=== PATIENT | female | born 1990 | race Caucasian/White ===

== ENCOUNTER 2023-05-16 13:03 | Emergency (ER) | payer OTHER ==
[~2023-05-16] VITALS: Ht 162.6 cm; Wt 95.2 kg
--- OUTSIDE RECORDS SUMMARY | 2023-05-16 13:06 | XMS ---
PreManage Notification: [employer] Events No recent Security Events currently on file CRITERIA MET - [facility] CARE PROVIDERS There are no care providers on record at this time. Yolie has no Care Guidelines for this patient. Radha VISIT COUNT (12 MO.) 1 [facility] Macias TOTAL 1 NOTE: Visits indicate total known visits. ED/C VISIT TRACKING (12 MO.) 05/16/2023 13:04 [facility] [place] TYPE: Emergency COMPLAINT: - POSS OVERDOSE INPATIENT VISIT TRACKING (12 MO.) No inpatient visits to display in this time frame [id number]
[2023-05-16 13:32] LABS: BASOPHILS 0.3 % (0-2); EOSINOPHILS 1.2 % (0-6); HEMATOCRIT 39.5 % (35.0-50.0); HEMOGLOBIN 13.7 g/dL (12.0-18.0); LYMPHOCYTES 14.5 % (24-44); MCH 30.2 (27-36); MCHC 34.6 g/dl (30-36); MCV 87.4 fl (81-99); MONOCYTES 4.5 % (0-12); NEUTROPHILS 79.5 % (39-80); PLATELET COUNT 233 K/uL (140-440); RBC 4.52 M/ul (4.3-5.7)
[2023-05-16 13:50] LABS: ACETAMINOPHEN 0 ug/mL (10-30); ALBUMIN 3.3 g/dL (3.4-5.0); ALBUMIN/GLOBULIN RATIO 1.18 (1.1-2.4); ALCOHOL, MEDICAL <3 ng/dL (<3); ALKALINE PHOSPHATASE 84 U/L (46-116); ALT (SGPT) 14 U/L (14-59); ANION GAP 12.2 (7-21); AST (SGOT) 13 U/L (15-37); BILIRUBIN, TOTAL 0.5 ng/dL (0.2-1.0); BUN/CREATININE RATIO 6.31 (6.0-28.6); CARBON DIOXIDE 31 mmol/L (21-32); CHLORIDE 99 mmol/L (98-107); CREATININE, SERUM 0.95 mg/dL (0.55-1.02); GLOMERULAR FILTRATION RATE,EST 82 mL/min (>60); POTASSIUM 3.2 mmol/L (3.5-5.1); PROTEIN, TOTAL 6.1 g/dL (6.4-8.2); SALICYLATE 3.2 mg/dL (2.8-20.0); UREA NITROGEN 6 mg/dL (7-18)
[2023-05-16 13:55] LABS: CALCIUM 8.8 mg/dL (8.5-10.1)
[2023-05-16 14:17] LABS: PREGNANCY TEST, URINE NEGATIVE (NEG)
[2023-05-16 14:18] LABS: AMPHETAMINES, UR NEGATIVE (NEGATIVE); BARBITURATES, UR NEGATIVE (NEGATIVE); BENZODIAZEPINES, UR NEGATIVE (NEGATIVE); BUPRENORPHINE,UR NEGATIVE (NEGATIVE); COCAINE, UR NEGATIVE (NEGATIVE); MARIJUANA (THC), UR NEGATIVE (NEGATIVE); MDMA, UR NEGATIVE (NEGATIVE); METHADONE, UR NEGATIVE (NEGATIVE); METHAMPHETAMINE, UR NEGATIVE (NEGATIVE); OPIATES, UR NEGATIVE (NEGATIVE); OXYCODONE, UR NEGATIVE (NEGATIVE); PHENCYCLIDINE, UR NEGATIVE (NEGATIVE); TRICYCLIC ANTIDEPRESSANT, UR NEGATIVE (NEGATIVE)
[2023-05-16 16:44] VITALS: BP 116/71
--- NOTE | 2023-05-17 05:58 | EKG ---
[facility] [address] [place], [place] [address] Signed Normal sinus rhythm Normal ECG No previous ECGs available Confirmed by TAYLOR HANCOCK MD ([id number]) on 05/17/2023 5:58:03 AM Electronically Signed By: TAYLOR HANCOCK 05/17/23 0558 PATIENT NAME: KIRIT STEELA Oracio Electrocardiogram DATE OF : 89 PHYSICIAN: TAYLOR HANCOCK REPORT #: [id number] REPORT IS CONFIDENTIAL AND NOT TO BE RELEASED WITHOUT AUTHORIZATION
== END 2023-05-16 16:35 | disposition other institution, planned readmission (95) ==
LOC: ED 13:03
PROVIDERS: Emergency Medicine
DX: T40.411A Poisoning by fentanyl or fentanyl analogs, accidental (unintentional), initial encounter (principal); Z88.0 Allergy status to penicillin
CPT/HCPCS: 36415; 80053; 82553; 84703; 85025; 93005; 93010; G0480; J7030

== ENCOUNTER → 2023-06-01 | Emergency (ER) | payer OTHER ==
[~2023-06-01] VITALS: Ht 162.6 cm; Wt 95.2 kg
[~2023-06-01] MED LIST: ATIVAN1 MG PO; GEODON80 MG PO; HYDROXYZINE HCL25 MG PO; MINIPRESS2 MG PO; TRAZODONE HCL100 MG PO; ZYPREXA5 MG SL
--- OUTSIDE RECORDS SUMMARY | 2023-06-01 15:55 | XMS ---
PreManage Notification: [employer] Events No recent Security Events currently on file CRITERIA MET - [facility] - [facility] - 2 Visits in 30 Days CARE PROVIDERS There are no care providers on record at this time. Yolie has no Care Guidelines for this patient. Rad[facility] NOTE: Visits indicate total known visits. ED/C VISIT TRACKING (12 MO.) [facility] COMPLAINT: - MEDICAL CLEARANCE 05/16/2023 13:04 [facility] [place] TYPE: Emergency COMPLAINT: - POSS OVERDOSE DIAGNOSES: - Allergy status to penicillin - Poisoning by fentanyl or fentanyl analogs, accidental (unintentional), initial encounter INPATIENT VISIT TRACKING (12 MO.) No inpatient visits to display in this time frame [id number]
[2023-06-01 16:48] LABS: BASOPHILS 0.3 % (0-2); EOSINOPHILS 1.2 % (0-6); HEMOGLOBIN 13.9 g/dL (12.0-18.0); MCH 30.2 (27-36); MCV 88.8 fl (81-99); NEUTROPHILS 73.5 % (39-80); PLATELET COUNT 241 K/uL (140-440); RBC 4.61 M/ul (4.3-5.7); RDW 13.9 (10.5-15.0)
[2023-06-01 17:12] LABS: ACETAMINOPHEN 0 ug/mL (10-30); ALBUMIN 3.6 g/dL (3.4-5.0); ALCOHOL, MEDICAL <3 ng/dL (<3); ALKALINE PHOSPHATASE 81 U/L (46-116); ALT (SGPT) 16 U/L (14-59); ANION GAP 11.4 (7-21); AST (SGOT) 13 U/L (15-37); BILIRUBIN, TOTAL 0.6 ng/dL (0.2-1.0); BUN/CREATININE RATIO 12.19 (6.0-28.6); CARBON DIOXIDE 28 mmol/L (21-32); CHLORIDE 105 mmol/L (98-107); CREATININE, SERUM 0.82 mg/dL (0.55-1.02); GLOMERULAR FILTRATION RATE,EST 98 mL/min (>60); POTASSIUM 4.4 mmol/L (3.5-5.1); PROTEIN, TOTAL 6.6 g/dL (6.4-8.2); SALICYLATE 1.3 mg/dL (2.8-20.0); TSH, 3RD GENERATION 0.949 uIU/mL (0.358-3.740); UREA NITROGEN 10 mg/dL (7-18)
[2023-06-01 17:22] LABS: AMPHETAMINES, UR NEGATIVE (NEGATIVE); BARBITURATES, UR NEGATIVE (NEGATIVE); BENZODIAZEPINES, UR NEGATIVE (NEGATIVE); BILIRUBIN, URINE NEGATIVE (negative); BLOOD/HGB, URINE NEGATIVE (Negative); BUPRENORPHINE,UR NEGATIVE (NEGATIVE); COCAINE, UR NEGATIVE (NEGATIVE); KETONE, URINE NEGATIVE (Negative); LEUK ESTERASE, URINE TRACE (negative); MARIJUANA (THC), UR NEGATIVE (NEGATIVE); MDMA, UR NEGATIVE (NEGATIVE); METHADONE, UR NEGATIVE (NEGATIVE); METHAMPHETAMINE, UR NEGATIVE (NEGATIVE); NITRITE, URINE NEGATIVE (negative); OPIATES, UR NEGATIVE (NEGATIVE); OXYCODONE, UR NEGATIVE (NEGATIVE); PHENCYCLIDINE, UR NEGATIVE (NEGATIVE); TRICYCLIC ANTIDEPRESSANT, UR NEGATIVE (NEGATIVE)
[2023-06-01 17:31] LABS: EPITHELIAL CELLS, URINE SQUAMOUS 1+ /lpf (0-1+); RED BLOOD CELLS, URINE 0-1 /hpf (0-5)
[2023-06-01 17:32] LABS: BACTERIA, URINE NONE SEEN /hpf (negative); CASTS, URINE NONE SEEN \\lpf; COLLECTION TYPE, URINE CLEAN CATCH; CRYSTALS, URINE NONE SEEN (0-1+); REFLEX CULTURE, URINE No (No)
[2023-06-01 18:06] LABS: INFLUENZA B NAA NEGATIVE (NEGATIVE); RESPIRATORY SYNCYTIAL VIR NAA NEGATIVE (NEGATIVE)
[2023-06-02 11:55] VITALS: BP 106/68
== END ==
LOC: ED 15:53
PROVIDERS: Emergency Medicine
DX: R45.850 Homicidal ideations (principal); Z20.822 Contact with and (suspected) exposure to COVID-19; Z88.0 Allergy status to penicillin
CPT/HCPCS: 36415; 80053; 81001; 84443; 84703; 85025; 87502; C9803; G0480; U0002

== ENCOUNTER 2024-08-18 16:04 | Emergency (ER) | payer OTHER ==
[~2024-08-18] VITALS: Ht 162.6 cm; Wt 79.6 kg
[2024-08-18 16:48] LABS: BILIRUBIN, URINE NEGATIVE (negative); BLOOD/HGB, URINE NEGATIVE (Negative); KETONE, URINE NEGATIVE (Negative); LEUK ESTERASE, URINE NEGATIVE (negative); NITRITE, URINE NEGATIVE (negative)
[2024-08-18 17:04] LABS: AMPHETAMINES, URINE NEGATIVE (NEGATIVE); BARBITURATES, URINE NEGATIVE (NEGATIVE); BENZODIAZEPINE, URINE NEGATIVE (NEGATIVE); BUPRENORPHINE, URINE NEGATIVE (NEGATIVE); CANNABINOID, URINE NEGATIVE (NEGATIVE); COCAINE, URINE NEGATIVE (NEGATIVE); ECSTASY, URINE NEGATIVE (NEGATIVE); FENTANYL, URINE NEGATIVE (NEGATIVE); METHADONE, URINE NEGATIVE (NEGATIVE); OPIATES, URINE NEGATIVE (NEGATIVE); OXYCODONE, URINE NEGATIVE (NEGATIVE); PHENCYCLIDINE, URINE NEGATIVE (NEGATIVE)
[2024-08-18 17:04] LABS: MCH 30.4 (27-36)
[2024-08-18 17:06] LABS: BASOPHILS 0.5 % (0-2); EOSINOPHILS 1.2 % (0-6); HEMATOCRIT 40.7 % (35.0-50.0); HEMOGLOBIN 13.6 g/dL (12.0-18.0); MCHC 33.4 g/dl (30-36); MCV 91.1 fl (81-99); NEUTROPHILS 64.3 % (39-80); PLATELET COUNT 203 K/uL (140-440); RBC 4.46 M/ul (4.3-5.7); RDW 13.3 (10.5-15.0)
[2024-08-18 17:28] LABS: ACETAMINOPHEN 0 ug/mL (10-30); ALBUMIN 3.7 g/dL (3.4-5.0); ALBUMIN/GLOBULIN RATIO 1.37 (1.1-2.4); ALCOHOL, MEDICAL <3 ng/dL (<3); ALKALINE PHOSPHATASE 75 U/L (46-116); ALT (SGPT) 10 U/L (14-59); ANION GAP 12.3 (7-21); AST (SGOT) 9 U/L (15-37); BILIRUBIN, TOTAL 0.7 ng/dL (0.2-1.0); CALCIUM 8.9 mg/dL (8.5-10.1); CARBON DIOXIDE 29 mmol/L (21-32); CHLORIDE 106 mmol/L (98-107); CREATININE, SERUM 0.71 mg/dL (0.55-1.02); GLOMERULAR FILTRATION RATE,EST 115 mL/min (>60); POTASSIUM 4.3 mmol/L (3.5-5.1); PROTEIN, TOTAL 6.4 g/dL (6.4-8.2); UREA NITROGEN 12 mg/dL (7-18)
[2024-08-18 17:29] LABS: SALICYLATE < 0.2 mg/dL (2.8-20.0)
[2024-08-18] MEDS ORDERED: TRAZODONE HCL 100 MG TAB PO ONE (20:30)
[2024-08-18] MEDS ORDERED: OLANZapine 10 MG TAB PO ONE (20:45)
[2024-08-18] MEDS ORDERED: OLANZapine 10 MG TAB PO SCH (21:00)
[2024-08-18] MEDS ORDERED: TRAZODONE HCL 100 MG TAB PO SCH (21:00)
[2024-08-19] MEDS ORDERED: TRAZODONE HCL 100 MG TAB PO SCH (21:00)
[2024-08-19] MEDS ORDERED: OLANZapine 10 MG TAB PO SCH (21:00)
--- NOTE | 2024-08-20 12:16 | EKG ---
[facility] [address] [place] [address] Signed Sinus bradycardia with sinus arrhythmia Otherwise normal ECG When compared with ECG of 16-MAY-2023 14:50, Vent. rate has decreased BY 32 BPM Confirmed by Abdias Quiroz MD ([id number]) on 08/20/2024 12:15:49 PM Electronically Signed By: ABDIAS QUIROZ DO 08/20/24 1216 PATIENT NAME: [employer] Electrocardiogram DATE OF : [birth year] PHYSICIAN: ABDIAS QUIROZ DO REPORT #: [id number] REPORT IS CONFIDENTIAL AND NOT TO BE RELEASED WITHOUT AUTHORIZATION
[2024-08-21] MEDS ORDERED: NICOTINE POLACRILEX 4 MG LOZENGE BUCCAL PRN (20:15)
[2024-08-22 09:56] VITALS: BP 111/59
== END 2024-08-22 09:56 ==
LOC: ED 16:04
PROVIDERS: Emergency Medicine
DX: Z02.89 Encounter for other administrative examinations (principal); F29 Unspecified psychosis not due to a substance or known physiological condition; Z88.0 Allergy status to penicillin
CPT/HCPCS: 36415; 80053; 80307; 81003; 84443; 84703; 85025; 93005; 93010; 99284; A9270; G0480; U0002